=== PATIENT | male | born 1995 | race Caucasian/White ===

== ENCOUNTER → 2025-08-03 | Outpatient (CLI) | payer MEDICAID, SELFPAY ==
[2025-08-03 16:17] LABS: Color, Urine Yellow (Yellow); Glucose, Dipstick Normal (Normal); Ketone-Dipstick Negative (Negative); Leukocyte Esterase-Dipstick Negative /ul (Negative); Nitrite-Dipstick Negative (Negative); Occult Blood-Urine 10 /ul (Negative); Protein-Dipstick 15 mg/dl (Negative); Specific Gravity, Urine 1.010 (1.002-1.030); Urine Bilirubin Dipstick Negative (Negative)
[2025-08-03 16:42] LABS: Hematocrit 45.6 % (40-54); Hemoglobin 15.5 g/dL (13.0-16.5); Immature Granulocytes Count 0.120 X10^3/uL (0.0-0.0); Mean Corp Hgb Conc 34.0 g/dL (32-36); Mean Corpuscular Volume 92.1 fL (80-94); Mean Platelet Vol. 9.9 fl (6.2-12.0); NRBC Flagged by Analyzer 0 % (0-5); Platelet Count 319 K/mm3 (150-450); RBC Distribution Width CV 12.8 % (11.6-14.6); RBC Distribution Width SD 43.3 fl (35.1-43.9); Red Blood Count 4.95 M/mm3 (4.6-6.2); White Blood Count 12.7 K/mm3 (4.4-11.0)
[2025-08-03 17:01] LABS: AST(SGOT) 42 U/L (<=37); Alanine Aminotransfer ALT/SGPT 74 U/L (<=46); Albumin, Serum 4.5 g/dL (3.5-5.0); Alkaline Phosphatase 95 U/L (40-129); Anion Gap 15 (5-15); BUN 10 mg/dL (4-19); BUN/Creat Ratio 12.7 RATIO (10-20); Calcium,Total 9.9 mg/dL (7.6-11.0); Carbon Dioxide 21.7 mmol/L (21.0-32.0); Chloride 102 mmol/L (98-108); Globulin 2.7 g/dL (2.2-4.2); Glucose 83 mg/dL (70-99); HIV Nonreactive (Nonreactive); Potassium 4.2 mmol/L (3.3-5.1); Syphilis Antibodies Nonreactive (Nonreactive)
[2025-08-05 05:07] LABS: HEPATITIS B SURFACE AG Negative (Negative); Hep C Antibodies Non Reactive (Non Reactive)
== END | disposition home or self-care (01) ==
LOC: VSLAB 14:30
DX: Z00.00 Encounter for general adult medical examination without abnormal findings (principal); Z72.51 High risk heterosexual behavior
CPT/HCPCS: 36415; 80053; 80074; 81002; 83036; 84443; 85025; 86703; 86780; 87491; 87591; 87661